=== PATIENT | female | born 1955 | race Caucasian/White ===

== ENCOUNTER → 2016-08-29 | Outpatient (CLI) | payer BC ==
--- NOTE | 2016-08-29 16:00 | DI ---
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 Findings: Patient shows the radiation therapy probe device in place. No free air or free fluid seen. No suggestion of perforation or other acute soft tissue abnormality identified. Impression: Medicine therapy device placed into vaginally without accompanying abnormal unexpected soft tissue findings. .
== END ==
LOC: IMA 14:55
PROVIDERS: ATTEND Radiology Radiation Oncology
DX: C53.0 Malignant neoplasm of endocervix (principal)